=== PATIENT | male | born 1980 | race African-American/Black ===

== ENCOUNTER 2019-07-29 00:09 | Emergency (ER) | payer OTHER ==
[~2019-07-29] VITALS: Ht 162.6 cm; Wt 81.2 kg
[2019-07-29 03:12] LABS: URINE BILIRUBIN NEGATIVE (Negative); URINE BLOOD NEGATIVE (Negative); URINE CLARITY CLEAR; URINE COLOR YELLOW; URINE GLUCOSE-RANDOM* NEGATIVE (Negative); URINE KETONES NEGATIVE (Negative); URINE LEUKOCYTES-REFLEX NEGATIVE (Negative); URINE NITRITE-REFLEX NEGATIVE (Negative); URINE PROTEIN (DIPSTICK) NEGATIVE (Negative); URINE UROBILINOGEN 0.2 E.U./dl (0.2-1.0)
[2019-07-29] MEDS ORDERED: LEVAQUIN 500 M500 M1 PO (03:38)
[2019-07-29] MEDS ORDERED: NORCO 5-325 TA1 EAC1 PO (03:47)
[2019-07-29 04:02] VITALS: BP 117/72
== END 2019-07-29 04:05 | disposition home or self-care (01) ==
LOC: ER 00:09
PROVIDERS: Emergency Medicine
DX: N45.1 Epididymitis (principal); J45.909 Unspecified asthma, uncomplicated; F17.210 Nicotine dependence, cigarettes, uncomplicated; Z88.8 Allergy status to other drugs, medicaments and biological substances

== ENCOUNTER 2019-08-14 12:13 | Emergency (ER) | payer OTHER ==
[~2019-08-14] VITALS: Ht 162.6 cm; Wt 78.0 kg
[~2019-08-14 12:13] MED LIST: LEVAQUIN 500 M500 M1 PO; NORCO 5-325 TA1 EAC1 PO
[2019-08-14 12:56] LABS: URINE BILIRUBIN NEGATIVE (Negative); URINE BLOOD TRACE (Negative); URINE COLOR YELLOW; URINE GLUCOSE-RANDOM* NEGATIVE (Negative); URINE KETONES NEGATIVE (Negative); URINE LEUKOCYTES-REFLEX TRACE (Negative); URINE NITRITE-REFLEX NEGATIVE (Negative); URINE PROTEIN (DIPSTICK) 1+ (Negative); URINE UROBILINOGEN 0.2 E.U./dl (0.2-1.0)
[2019-08-14 12:57] LABS: URINE CLARITY HAZY
[2019-08-14 13:19] LABS: SQUAMOUS None Seen /LPF (0-3)
[2019-08-14 13:23] LABS: URINE RBC 0-2 Rare /HPF (0-2)
[2019-08-14 13:24] LABS: CASTS None Seen /LPF (None Seen); CRYSTALS None Seen /LPF (None Seen)
[2019-08-14 13:42] LABS: ABSOLUTE NEUTROPHILS 10.3 thou/uL (1.4-8.2); BASOPHILS 0.5 % (0.0-2.0); EOSINOPHILS 2.2 % (0.0-3.0); HEMATOCRIT 39.6 % (42.0-52.0); HEMOGLOBIN 13.4 gm/dL (14.0-18.0); LYMPHOCYTES 13.1 % (24.0-44.0); MCH 32.4 pg (26.0-34.0); MCHC 33.9 g/dL (28.0-37.0); MCV 95.5 fL (80.0-100.0); MONOCYTES 8.1 % (1.0-8.0); PLATELET COUNT 304 thou/uL (150-400); POLYS 76.1 % (36.0-66.0); RBC 4.15 mil/uL (4.50-6.00); RDW 14.1 % (10.5-14.5); WBC 13.5 thou/uL (4.0-11.0)
[2019-08-14 13:49] LABS: CALCIUM 9.2 mg/dL (8.5-10.1); CREATININE 1.4 mg/dL (0.7-1.3); POTASSIUM 4.1 mmol/L (3.5-5.1)
[2019-08-14 13:54] LABS: ALBUMIN 2.6 g/dL (3.4-5.0); TOTAL BILIRUBIN 0.2 mg/dL (<0.1-1.0); TOTAL PROTEIN 7.9 g/dL (6.4-8.2)
[2019-08-14 15:14] VITALS: BP 115/54
== END 2019-08-14 16:32 | disposition short-term general hospital (02) ==
LOC: ER 12:13
PROVIDERS: Physician Assistant
DX: N41.2 Abscess of prostate (principal); R10.9 Unspecified abdominal pain; J45.909 Unspecified asthma, uncomplicated; F17.210 Nicotine dependence, cigarettes, uncomplicated; Z88.6 Allergy status to analgesic agent

== ENCOUNTER 2021-05-07 09:23 | Emergency (ER) | payer OTHER ==
[~2021-05-07] VITALS: Ht 162.6 cm; Wt 96.6 kg
[2021-05-07 09:25] VITALS: BP 115/67
[2021-05-07] MEDS ORDERED: OFLOXACIN5 M1 LT. EAR (10:28)
[2021-05-07] MEDS ORDERED: AMOXICILLIN875 MG PO (10:29)
== END 2021-05-07 10:50 | disposition home or self-care (01) ==
LOC: ER 09:23
DX: H60.92 Unspecified otitis externa, left ear (principal); Z20.822 Contact with and (suspected) exposure to COVID-19; F17.210 Nicotine dependence, cigarettes, uncomplicated; J45.909 Unspecified asthma, uncomplicated; Z88.6 Allergy status to analgesic agent